=== PATIENT | female | born 1990 | race Caucasian/White ===

== ENCOUNTER → 2018-01-30 | Emergency (ER) | payer OTHER ==
[~2018-01-30] VITALS: Ht 157.5 cm; Wt 62.1 kg
[~2018-01-30] MED LIST: KETO10TA2 PO; ORPH100T PO
== END | disposition home or self-care (01) ==
LOC: ER 17:39
DX: I88.0 Nonspecific mesenteric lymphadenitis (principal); M54.5 Low back pain